=== PATIENT | male | born 1980 | race African-American/Black ===

== ENCOUNTER 2018-03-17 19:09 | Emergency (ER) | payer SELFPAY ==
--- NOTE | 2018-03-17 19:48 | ER ---
Nurse's Notes [facility] Name: Ward Matos Sr Age: 37 yrs Sex: Male : 1980 Arrival Date: 03/17/2018 Time: 19:11 Bed 16 Private MD: Diagnosis: Gout Presentation: 03/17 19:24 Presenting complaint: Patient states: right foot pain since last night - pt stated due ak1 to gout. Transition of care: patient was not received from another setting of care. Onset of symptoms was March 16, 2018. Risk Assessment: Do you want to hurt yourself or someone else? Patient reports no desire to harm self or others. Initial Sepsis Screen: Does the patient meet any 2 criteria? No. Patient's initial sepsis screen is negative. Does the patient have a suspected source of infection? No. Patient's initial sepsis screen is negative. Care prior to arrival: None. 19:24 Method Of Arrival: Ambulatory ak1 19:24 Acuity: KEVIN 4 ak1 Triage Assessment: 19:26 General: Appears in no apparent distress. Behavior is calm, cooperative. Pain: ak1 Complains of pain in right foot. EENT: No signs and/or symptoms were reported regarding the EENT system. Neuro: No deficits noted. Cardiovascular: No deficits noted. Respiratory: No deficits noted. GI: No signs and/or symptoms were reported involving the gastrointestinal system. : No signs and/or symptoms were reported regarding the genitourinary system. Derm: No signs and/or symptoms reported regarding the dermatologic system. Musculoskeletal: Reports pain in right foot since last night. pt ambulating with crutches. Historical: - Allergies: 19:26 PENICILLINS; ak1 19:26 Benadryl; ak1 - Home Meds: 19:26 valardin [Active]; HCTZ [Active]; ak1 - PMHx: 19:26 Hypertension; ak1 - PSHx: 19:26 right eye sx; ak1 - Immunization history:: Adult Immunizations unknown. - Social history:: Smoking status: Patient/guardian denies using tobacco. - Ebola Screening: : No symptoms or risks identified at this time. Screenin:09 Abuse screen: Denies threats or abuse. Denies injuries from another. Nutritional bs1 screening: No deficits noted. Tuberculosis screening: No symptoms or risk factors identified. Fall Risk None identified. Assessment: 19:30 Reassessment: See Triage notes. I agree with initial assessment. bs1 20:11 Reassessment: Patient appears in no apparent distress at this time. Patient and/or bs1 family updated on plan of care and expected duration. Pain level reassessed. Patient is alert, oriented x 3, equal unlabored respirations, skin warm/dry/pink. Patient states understanding of DC instructions. Vital Signs: 19:26 BP 129 / 107; Pulse 97; Resp 18; Temp 98.6; Pulse Ox 98% on R/A; Weight 145.15 kg (R); ak1 Height 6 ft. 0 in. (182.88 cm) (R); Pain 10/10; 20:08 BP 133 / 90; Pulse 79; Resp 18; Temp 98; Pulse Ox 99% on R/A; Pain 8/10; bs1 19:26 Body Mass Index 43.40 (145.15 kg, 182.88 cm) ak1 ED Course: 19:11 Patient arrived in ED. 19:25 Triage completed. ak1 19:26 Arm band placed on Patient placed in an exam room, on a stretcher, Patient notified of ak1 wait time. 19:28 Scott Corona MD is Attending Physician. 19:28 Patient has correct armband on for positive identification. Bed in low position. Call bs1 light in reach. Side rails up X 1. Pulse ox on. NIBP on. 19:32 Jailyn Ross, JENNIFER is Primary Nurse. bs1 20:09 No provider procedures requiring assistance completed. Patient did not have IV access bs1 during this emergency room visit. Administered Medications: No medications were administered Outcome: 19:48 Discharge ordered by . 20:10 Discharged to home ambulatory. bs1 20:10 Condition: stable 20:10 Discharge instructions given to patient, Instructed on discharge instructions, follow up and referral plans. medication usage, Demonstrated understanding of instructions, follow-up care, medications, Prescriptions given X 2. 20:11 Patient left the ED. bs1 Signatures: Estefanía Ramírez Amber RN RN ak Scott Corona MD MD Jailyn Ross, JENNIFER RN bs1
--- NOTE | 2018-03-17 19:48 | EDPHYS ---
Physician Documentation [facility] Name: Ward Matos Sr Age: 37 yrs Sex: Male : 1980 Arrival Date: 03/17/2018 Time: 19:11 Bed 16 Private MD: ED Physician Scott Corona HPI: 03/17 19:38 This 37 yrs old Black Male presents to ER via Ambulatory with complaints of Foot Pain. gs 19:38 The patient presents with pain. The complaints affect the right foot. Onset: The gs symptoms/episode began/occurred 1 week(s) ago. Modifying factors: the symptoms are aggravated by weight bearing, movement. Associated signs and symptoms: Pertinent negatives: fever. Severity of symptoms: At their worst the symptoms were moderate, in the emergency department the symptoms are unchanged. The patient has experienced similar episodes in the past, chronically. Historical: - Allergies: 19:26 PENICILLINS; ak1 19:26 Benadryl; ak1 - Home Meds: 19:26 valardin [Active]; HCTZ [Active]; ak1 - PMHx: 19:26 Hypertension; ak1 - PSHx: 19:26 right eye sx; ak1 - Immunization history:: Adult Immunizations unknown. - Social history:: Smoking status: Patient/guardian denies using tobacco. - Ebola Screening: : No symptoms or risks identified at this time. ROS: 19:38 All other systems are negative. gs Exam: 19:38 ENT: Nares patent. No nasal discharge, no septal abnormalities noted. Tympanic gs membranes are normal and external auditory canals are clear. Oropharynx with no redness, swelling, or masses, exudates, or evidence of obstruction, uvula midline. Mucous membranes moist. Cardiovascular: Regular rate and rhythm with a normal S1 and S2. No gallops, murmurs, or rubs. Normal PMI, no JVD. No pulse deficits. Respiratory: Lungs have equal breath sounds bilaterally, clear to auscultation and percussion. No rales, rhonchi or wheezes noted. No increased work of breathing, no retractions or nasal flaring. Skin: Warm, dry with normal turgor. Normal color with no rashes, no lesions, and no evidence of cellulitis. Neuro: Awake and alert, GCS 15, oriented to person, place, time, and situation. Cranial nerves II-XII grossly intact. Motor strength 5/5 in all extremities. Sensory grossly intact. Cerebellar exam normal. Normal gait. 19:38 Constitutional: The patient appears alert, awake. 19:38 Musculoskeletal/extremity: Extremities: noted in the dorsum of right foot: Pulses: are normal with no appreciated deficits. 19:38 Musculoskeletal/extremity: Extremities: tenderness. 19:38 Skin: Appearance: Temperature: warm. Vital Signs: 19:26 BP 129 / 107; Pulse 97; Resp 18; Temp 98.6; Pulse Ox 98% on R/A; Weight 145.15 kg (R); ak1 Height 6 ft. 0 in. (182.88 cm) (R); Pain 10/10; 20:08 BP 133 / 90; Pulse 79; Resp 18; Temp 98; Pulse Ox 99% on R/A; Pain 8/10; bs1 19:26 Body Mass Index 43.40 (145.15 kg, 182.88 cm) ak1 MDM: 19:32 Patient medically screened. 19:38 Differential diagnosis: fracture, arthritis, gout. Data reviewed: vital signs, nurses gs notes. Response to treatment: the patient's symptoms have mildly improved after treatment, and as a result, I will discharge patient. Administered Medications: No medications were administered Disposition: 03/17/18 19:48 Discharged to Home. Impression: Gout. - Condition is Stable. - Discharge Instructions: Gout, [id number]. - Prescriptions for Prednisone 20 mg Oral Tablet - take 1 tablet by ORAL route once daily for 5 days; 5 tablet. Tylenol- Codeine #4 300-60 mg Oral Tablet - take 1 tablet by ORAL route every 6 hours As needed; 10 tablet. - Medication Reconciliation Form, Thank You Letter, Antibiotic Education, Prescription Opioid Use, Work release form form. - Follow up: Private Physician; When: 1 - 2 days; Reason: Re-evaluation by your physician. Signatures: Rossi Mederos RN RN ak1 Scott Corona MD MD Jailyn Ross RN RN bs1 Corrections: (The following items were deleted from the chart) 20:11 19:48 03/17/2018 19:48 Discharged to Home. Impression: Gout. Condition is Stable. Forms bs1 are Medication Reconciliation Form, Thank You Letter, Antibiotic Education, Prescription Opioid Use. Follow up: Private Physician; When: 1 - 2 days; Reason: Re-evaluation by your physician. gs
== END 2018-03-17 20:11 | disposition home or self-care (01) ==
LOC: ER 19:09
DX: M10.9 Gout, unspecified (principal); Z88.6 Allergy status to analgesic agent; Z88.0 Allergy status to penicillin; I10 Essential (primary) hypertension
CPT/HCPCS: 99283

== ENCOUNTER 2019-11-12 | Emergency (ER) | payer OTHER, SELFPAY ==
--- NOTE | 2019-11-12 15:26 | EDPHYS ---
Physician Documentation [facility] Name: Ward Matos Sr Age: 39 yrs Sex: Male : 1980 Arrival Date: 11/12/2019 Time: 14:52 Bed 20 Private MD: ED Physician Jose Arevalo HPI: 11/11 15:21 This 39 yrs old Black Male presents to ER via Ambulatory with complaints of no jmm complaints. 15:21 This is a 39 year old male with a history of htn that presents to the ED with no jmm complaints. Patient states he cleared his throat at work and was advised to get checked for sen virus. Patient has not had any recent travel or exposure to a known infected person. . Historical: - Allergies: 15:02 Benadryl; ll1 15:02 PENICILLINS; ll1 15:02 valsartan; ll1 - PMHx: 15:02 Hypertension; ll1 - PSHx: 15:02 right eye sx; ll1 - Immunization history:: Flu vaccine is not up to date. - Social history:: Smoking status: Patient/guardian denies using. ROS: 15:21 Constitutional: Negative for fever, chills, and weight loss, ENT: Negative for injury, jmm pain, and discharge, Cardiovascular: Negative for chest pain, palpitations, and edema, Respiratory: Negative for shortness of breath, cough, wheezing, and pleuritic chest pain, Abdomen/GI: Negative for abdominal pain, nausea, vomiting, diarrhea, and constipation, Neuro: Negative for headache, weakness, numbness, tingling, and seizure. 15:21 All other systems are negative. Exam: 15:21 Constitutional: This is a well developed, well nourished patient who is awake, alert, jmm and in no acute distress. Head/Face: atraumatic. Eyes: EOMI, no conjunctival erythema appreciated ENT: Moist Mucus Membranes Neck: Trachea midline, Supple Chest/axilla: Normal chest wall appearance and motion. Cardiovascular: Regular rate and rhythm. No edema appreciated Respiratory: Normal respirations, no respiratory distress appreciated Abdomen/GI: Non distended, soft Back: Normal ROM 15:21 Skin: General appearance color normal MS/ Extremity: Moves all extremities, no obvious deformities appreciated, no edema noted to the lower extremities Neuro: Awake and alert, normal gait Psych: Behavior is normal, Mood is normal, Patient is cooperative and pleasant 15:21 ENT: Posterior pharynx: is normal. Vital Signs: 14:59 BP 160 / 109; Pulse 84; Resp 18; Temp 98.6; Pulse Ox 100% ; Pain 0/10; ll1 MDM: 15:17 Patient medically screened. [facility] 15:23 Data reviewed: vital signs, nurses notes. Counseling: I had a detailed discussion with hector the patient and/or guardian regarding: the historical points, exam findings, and any diagnostic results supporting the discharge/admit diagnosis, the need for outpatient follow up, to return to the emergency department if symptoms worsen or persist or if there are any questions or concerns that arise at home. ED course: Patient is asymptomatic and does not meet criteria for testing. . Administered Medications: No medications were administered Disposition: 18:31 Co-signature as Attending Physician, Jose Arevalo MD Signature for administrative ps1 purposes. Did not see or evaluate patient. . Disposition: 11/12/19 15:25 Discharged to Home. Impression: Person with feared health complaint in whom no diagnosis is made. - Condition is Stable. - Work release form, Medication Reconciliation Form, Thank You Letter, Antibiotic Education, Prescription Opioid Use form. - Follow up: Private Physician; When: 2 - 3 days; Reason: Recheck today's complaints, Continuance of care, Re-evaluation by your physician. Signatures: Aba Alcantar PA PA jmm Habalo, Winsy wh Singer, Phillip, MD MD ps1 Latasha Love RN RN ll1 Corrections: (The following items were deleted from the chart) 15:38 15:25 11/12/2019 15:25 Discharged to Home. Impression: Person with feared health wh complaint in whom no diagnosis is made. Condition is Stable. Forms are Medication Reconciliation Form, Thank You Letter, Antibiotic Education, Prescription Opioid Use. Follow up: Private Physician; When: 2 - 3 days; Reason: Recheck today's complaints, Continuance of care, Re-evaluation by your physician. hector
--- NOTE | 2019-11-12 15:26 | ER ---
Nurse's Notes [facility] Name: Ward Matos Sr Age: 39 yrs Sex: Male : 1980 Arrival Date: 11/12/2019 Time: 14:52 Bed 20 Private MD: Diagnosis: Person with feared health complaint in whom no diagnosis is made Presentation: 11/11 14:59 Chief complaint: Patient states: Sent home from work 2 days ago for clearing his ll1 throat. Needs work release. No fever or cough. + sinus congestion. Coronavirus screen: The patient has NOT traveled to a country currently being monitored by the [facility] within the last 14 days. Proceed with normal triage procedures. Ebola Screen: Patient denies travel to an Ebola-affected area in the 21 days before illness onset. Initial Sepsis Screen: Does the patient meet any 2 criteria? No. Patient's initial sepsis screen is negative. Risk Assessment: Do you want to hurt yourself or someone else? Patient reports no desire to harm self or others. 14:59 Method Of Arrival: Ambulatory ll1 15:02 Chief complaint: Patient states: Out of valsartan for 10 days. Needs refill. ll1 15:02 Acuity: KEVIN 4 ll1 15:10 Initial Sepsis Screen: Does the patient have a suspected source of infection? No. wh Patient's initial sepsis screen is negative. Onset of symptoms is unknown. Historical: - Allergies: 15:02 Benadryl; ll1 15:02 PENICILLINS; ll1 15:02 valsartan; ll1 - PMHx: 15:02 Hypertension; ll1 - PSHx: 15:02 right eye sx; ll1 - Immunization history:: Flu vaccine is not up to date. - Social history:: Smoking status: Patient/guardian denies using. Screenin:10 Abuse screen: Denies threats or abuse. Denies injuries from another. Nutritional wh screening: No deficits noted. Tuberculosis screening: No symptoms or risk factors identified. Fall Risk None identified. Assessment: 15:10 General: Appears in no apparent distress. Behavior is calm, cooperative, appropriate wh for age. Pain: Denies pain. Neuro: Level of Consciousness is awake, alert, obeys commands, Oriented to person, place, time, situation, Appropriate for age. Cardiovascular: Heart tones S1 S2. Respiratory: Reports cough that is non-productive, Airway is patent Respiratory effort is even, unlabored, Respiratory pattern is regular, symmetrical, Breath sounds are clear bilaterally. GI: Abdomen is flat, non-distended. : No signs and/or symptoms were reported regarding the genitourinary system. EENT: No signs and/or symptoms were reported regarding the EENT system. Derm: Skin is intact, is healthy with good turgor, Skin is pink, warm \T\ dry. normal. Musculoskeletal: Circulation, motion, and sensation intact. Vital Signs: 14:59 BP 160 / 109; Pulse 84; Resp 18; Temp 98.6; Pulse Ox 100% ; Pain 0/10; ll1 ED Course: 14:52 Patient arrived in ED. fj1 15:01 Triage completed. ll1 15:02 Arm band placed on. ll1 15:04 Aba Alcantar PA is PHCP. [facility] 15:04 Jose Arevalo MD is Attending Physician. [facility] 15:06 Gabo Barfield, RN is Primary Nurse. 15:10 Patient has correct armband on for positive identification. Bed in low position. Call light in reach. Side rails up X 1. Pulse ox on. NIBP on. 15:26 Radha Negron is Primary Nurse. 15:36 No provider procedures requiring assistance completed. Patient did not have IV access during this emergency room visit. Administered Medications: No medications were administered Outcome: 15:25 Discharge ordered by . [facility] 15:33 Discharged to home ambulatory. 15:33 Condition: stable 15:33 Discharge instructions given to patient, Instructed on discharge instructions, follow up and referral plans. POC Demonstrated understanding of instructions, follow-up care, POC 15:38 Patient left the ED. Signatures: Aba Alcantar PA PA jmm Munoz, Edgar, RN RN Radha Negron Pavan Solares 1 Latasha Love RN RN ll1 Corrections: (The following items were deleted from the chart) 15:02 14:59 Acuity: KEVIN 5 ll1 ll1
== END 2019-11-12 15:38 | disposition home or self-care (01) ==
CPT/HCPCS: 99283

== ENCOUNTER 2020-09-13 10:20 | Emergency (ER) | payer OTHER ==
[2020-09-13] MEDS ORDERED: IBUPROFEN 400 MG TAB ONE ×2 (12:18→12:20)
[2020-09-13 12:45] LABS: SARS-COV-2 RT PCR POSITIVE (NEGATIVE)
[2020-09-13 12:56] LABS: Urine Blood NEGATIVE (NEG); Urine Glucose NEGATIVE (NEG); Urine Protein 2+ (NEG); Urine Specific Gravity >1.030 (1.005-1.030); Urine pH 5.5 (5.0-7.0)
--- NOTE | 2020-09-13 13:16 | ER ---
Nurse's Notes [facility] Name: Ward Matos Age: 40 yrs Sex: Male : 1980 Arrival Date: 09/13/2020 Time: 10:24 Bed IW1 Private MD: Diagnosis: Coronavirus infection, unspecified Presentation: 09/13 10:38 Chief complaint: Patient states: fever, sneezing, chills, fatigue, cough x 4 days. R ca1 lower back pain x 3 days. Reports urinary urgency and frequency. Coronavirus screen: Client denies travel out of the [place] in the last 14 days. chills, congestion, cough unrelated to allergies, fatigue, fever, runny nose, Client presents with at least one sign or symptom that may indicate coronavirus-19. Standard/surgical mask placed on the client. Provider contacted for isolation considerations. Ebola Screen: Patient negative for fever greater than or equal to 101.5 degrees Fahrenheit, and additional compatible Ebola Virus Disease symptoms Patient denies exposure to infectious person. Patient denies travel to an Ebola-affected area in the 21 days before illness onset. No symptoms or risks identified at this time. Initial Sepsis Screen: Does the patient meet any 2 criteria? No. Patient's initial sepsis screen is negative. Does the patient have a suspected source of infection? No. Patient's initial sepsis screen is negative. Risk Assessment: Do you want to hurt yourself or someone else? Patient reports no desire to harm self or others. Onset of symptoms was September 10, 2020. 10:38 Method Of Arrival: Ambulatory ca1 10:38 Acuity: KEVIN 4 ca1 Historical: - Allergies: 10:42 Benadryl; ca1 10:42 PENICILLINS; ca1 10:42 valsartan; ca1 - PMHx: 10:42 Hypertension; ca1 - PSHx: 10:42 right eye sx; R arm surgery; ca1 - Immunization history:: Flu vaccine is not up to date. - Social history:: Smoking status: Patient reports the use of cigarette tobacco products, cigars. Screenin:12 Abuse screen: Denies threats or abuse. Denies injuries from another. Nutritional ca1 screening: No deficits noted. Tuberculosis screening: No symptoms or risk factors identified. Fall Risk None identified. Assessment: 11:12 General: Appears in no apparent distress. comfortable, Behavior is calm, cooperative, ca1 appropriate for age. General: Reports fever for > 3 days, feeling ill for > 3 days, fatigue for >3 days. Pain: Complains of pain in right low back Pain currently is 5 out of 10 on a pain scale. Pain began 2-3 days ago. Neuro: Level of Consciousness is awake, alert, obeys commands, Oriented to person, place, time, situation. Neuro: Reports headache. Cardiovascular: Heart tones S1 S2 present Capillary refill < 3 seconds Patient's skin is warm and dry. Respiratory: Reports cough that is Airway is patent Respiratory effort is even, unlabored, Respiratory pattern is regular, symmetrical, Breath sounds are clear bilaterally. GI: Abdomen is round non-distended, Bowel sounds present X 4 quads. Abd is soft and non tender X 4 quads. : Urine is clear, Reports urgency, since 3 days urinary frequency. EENT: Throat has enlarged tonsils bilaterally Reports nasal congestion nasal discharge. EENT: Throat is reddened. Derm: Skin is intact, is healthy with good turgor, Skin is pink, warm \T\ dry. Musculoskeletal: Circulation, motion, and sensation intact. Capillary refill < 3 seconds. 12:00 General: Appears in no apparent distress. comfortable, Behavior is calm, cooperative, zb appropriate for age, Reports fever for > 3 days, feeling ill for > 3 days, fatigue for >3 days. Pain: Complains of pain in right low back Pain currently is 5 out of 10 on a pain scale. Pain began 2-3 days ago. Neuro: Level of Consciousness is awake, alert, obeys commands, Oriented to person, place, time, situation. Cardiovascular: Heart tones S1 S2 present Capillary refill < 3 seconds in bilateral fingers Patient's skin is warm and dry. Respiratory: Reports shortness of breath cough that is Airway is patent Respiratory effort is even, unlabored, Respiratory pattern is regular, symmetrical, Breath sounds are clear bilaterally. GI: Abdomen is round non-distended, Bowel sounds present X 4 quads. Abd is soft and non tender. : Reports urgency, urinary frequency. EENT: Throat is reddened has enlarged tonsils bilaterally. Derm: Skin is intact, is healthy with good turgor, Skin is normal. Musculoskeletal: Circulation, motion, and sensation intact. Capillary refill Range of motion: intact in all extremities. 14:00 Neuro: Level of Consciousness is awake, alert, obeys commands, Oriented to person, aa5 place, time, situation. Respiratory: Airway is patent Respiratory effort is even, unlabored, Respiratory pattern is regular, symmetrical. Derm: Skin is dry, Skin is normal, Skin temperature is warm. Vital Signs: 10:38 BP 151 / 71; Pulse 69; Resp 16 S; Temp 97.5(TE); Pulse Ox 98% on R/A; Weight 149.69 kg ca1 (R); Height 6 ft. 0 in. (182.88 cm) (R); Pain 10/10; 10:38 Body Mass Index 44.76 (149.69 kg, 182.88 cm) ca1 ED Course: 10:24 Patient arrived in ED. as 10:41 Triage completed. ca1 10:42 Arm band placed on right wrist. ca1 11:03 Aba Alcantar PA is PHCP. hector 11:03 Jarek Wisdom MD is Attending Physician. [facility] 11:12 Patient has correct armband on for positive identification. Bed in low position. Call ca1 light in reach. Side rails up X 1. Pulse ox on. NIBP on. 12:00 Lidia Turner RN is Primary Nurse. zb 14:00 No provider procedures requiring assistance completed. Patient did not have IV access aa5 during this emergency room visit. Administered Medications: 12:02 Drug: Ibuprofen 800 mg Route: PO; zb Outcome: 13:15 Discharge ordered by . [facility] 14:00 Discharged to home ambulatory, with significant other, . aa5 14:00 Condition: stable 14:00 Discharge instructions given to patient, . Instructed on discharge instructions, follow up and referral plans. medication usage, Demonstrated understanding of instructions, follow-up care, medications, Prescriptions given X 3. 14:15 Patient left the ED. aa5 Signatures: Aba Alcantar PA PA jmm Martinez, Amelia as Calderon, Audri, RN RN aa5 Mitzi Van RN RN [facility] Lidia Turner RN RN zb Corrections: (The following items were deleted from the chart) 12:03 11:12 General: Reports feeling ill for > 3 days, fatigue for >3 days, [place] [id number]
--- NOTE | 2020-09-13 13:16 | EDPHYS ---
Physician Documentation [facility] Name: Ward Matos Age: 40 yrs Sex: Male : 1980 Arrival Date: 09/13/2020 Time: 10:24 Bed IW1 Private MD: URIEL Physician Jarek Wisdom HPI: 09/13 12:06 This 40 yrs old Black Male presents to ER via Ambulatory with complaints of Fever, jmm Congestion, Cough. 12:06 The patient or guardian reports cough. Onset: The symptoms/episode began/occurred jmm gradually, 3 day(s) ago. Modifying factors: The symptoms are alleviated by nothing. the symptoms are aggravated by nothing. Associated signs and symptoms: Pertinent positives: fever. Patient complains of right lower back pain, increased urination, daughter recently tested positive for covid. Historical: - Allergies: 10:42 Benadryl; ca1 10:42 PENICILLINS; ca1 10:42 valsartan; ca1 - PMHx: 10:42 Hypertension; ca1 - PSHx: 10:42 right eye sx; R arm surgery; ca1 - Immunization history:: Flu vaccine is not up to date. - Social history:: Smoking status: Patient reports the use of cigarette tobacco products, cigars. ROS: 12:06 Constitutional: Positive for body aches, fever. jmm 12:06 Respiratory: Positive for cough. 12:06 Back: Positive for pain with movement. 12:06 All other systems are negative. Exam: 12:06 Constitutional: This is a well developed, well nourished patient who is awake, alert, jmm and in no acute distress. Head/Face: atraumatic. Eyes: EOMI, no conjunctival erythema appreciated 12:06 Neck: Trachea midline, Supple Chest/axilla: Normal chest wall appearance and motion. Cardiovascular: Regular rate and rhythm. No edema appreciated Respiratory: Normal respirations, no respiratory distress appreciated Abdomen/GI: Non distended, soft 12:06 Skin: General appearance color normal MS/ Extremity: Moves all extremities, no obvious deformities appreciated, no edema noted to the lower extremities Neuro: Awake and alert, normal gait Psych: Behavior is normal, Mood is normal, Patient is cooperative and pleasant 12:06 ENT: Posterior pharynx: erythema, that is mild. 12:06 Back: pain, that is mild, of the right low back. Vital Signs: 10:38 BP 151 / 71; Pulse 69; Resp 16 S; Temp 97.5(TE); Pulse Ox 98% on R/A; Weight 149.69 kg ca1 (R); Height 6 ft. 0 in. (182.88 cm) (R); Pain 10/10; 10:38 Body Mass Index 44.76 (149.69 kg, 182.88 cm) ca1 MDM: 11:04 Patient medically screened. [facility] 13:13 Data reviewed: vital signs, nurses notes. Counseling: I had a detailed discussion with hector the patient and/or guardian regarding: the historical points, exam findings, and any diagnostic results supporting the discharge/admit diagnosis, lab results, the need for outpatient follow up, to return to the emergency department if symptoms worsen or persist or if there are any questions or concerns that arise at home. ED course: Patient is alert and non toxic in appearance in the ED. No signs of resp distress. patient given strict return precautions. Patient understood and agrees with the plan of care. . 09/13 10:51 Order name: Strep; Complete Time: 12:23 aa5 09/13 12:13 Order name: Throat Culture EDMA 09/13 12:36 Order name: Urine Dipstick--Ancillary (enter results); Complete Time: 13:25 bd 09/13 12:46 Order name: COVID-19/FLU A+B; Complete Time: 12:54 [facility] 09/13 11:38 Order name: Urine Dipstick-Ancillary (obtain specimen); Complete Time: 11:45 [facility] Administered Medications: 12:02 Drug: Ibuprofen 800 mg Route: PO; zb Disposition: 09/14 06:29 Co-signature as Attending Physician, Jarek Wisdom MD I agree with the assessment and [facility] plan of care. Disposition: 09/13/20 13:15 Discharged to Home. Impression: Coronavirus infection, unspecified. - Condition is Stable. - Discharge Instructions: COVID-19. - Prescriptions for ivermectin 3 mg Oral tablet - take 6 tablet by ORAL route as directed 1 dose now, next dose in 48 hrs; 12 tablet. Prednisone 20 mg Oral Tablet - take 3 tablet by ORAL route once daily for 5 days; 15 tablet. Albuterol Sulfate 90 mcg/actuation - inhale 1-2 puff by INHALATION route every 4-6 hours; 1 Inhaler. - Medication Reconciliation Form, Thank You Letter, Antibiotic Education, Prescription Opioid Use, Work release form form. - Follow up: Private Physician; When: 2 - 3 days; Reason: Recheck today's complaints, Continuance of care, Re-evaluation by your physician. Signatures: Dispatcher [employer] EDMA Jarek Wisdom MD MD cha Mickail, Joel, PA PA jmm Calderon, Audri, RN RN aa5 Mitzi Van RN Lidia Leal RN RN zb Corrections: (The following items were deleted from the chart) 09/13 11:44 10:51 CORONAVIRUS+MR.LAB.BRZ ordered. [facility] 11:45 10:51 Influenza Screen (A \T\ B)+BA.LAB.BRZ ordered. [facility] EDMA 14:15 13:15 09/13/2020 13:15 Discharged to Home. Impression: Coronavirus infection, aa5 unspecified. Condition is Stable. Forms are Medication Reconciliation Form, Thank You Letter, Antibiotic Education, Prescription Opioid Use. Follow up: Private Physician; When: 2 - 3 days; Reason: Recheck today's complaints, Continuance of care, Re-evaluation by your physician. hector
[2020-09-13 14:33] VITALS: BP 151/71; TEMP 97.5; O2SAT 98
== END 2020-09-13 14:15 | disposition home or self-care (01) ==
LOC: ER 10:20
DX: U07.1 COVID-19 (principal); I10 Essential (primary) hypertension; F17.290 Nicotine dependence, other tobacco product, uncomplicated; Z88.0 Allergy status to penicillin; Z88.8 Allergy status to other drugs, medicaments and biological substances
CPT/HCPCS: 87070; 87081; 81003; 0240U; 99283

== ENCOUNTER 2021-04-10 16:40 | Emergency (ER) | payer OTHER ==
[2021-04-10] MEDS ORDERED: BENZONATATE 100 MG CAP PO ONE (17:54)
--- NOTE | 2021-04-10 18:13 | RAD REPORT ---
EXAM DESCRIPTION: RAD - Chest Pa And Lat (2 Views) - 04/10/2021 5:54 pm CLINICAL HISTORY: COUGH Chest pain. COMPARISON: CHEST PA AND LAT 2 VIEW dated 04/17/2011; CHEST PA AND LAT 2 VIEW dated 12/29/2008 FINDINGS: The lungs are clear. The heart is normal in size. No displaced fractures. IMPRESSION: No acute or concerning finding suspected.
--- NOTE | 2021-04-10 19:17 | EDPHYS ---
Physician Documentation [facility] Name: Ward Matos Age: 40 yrs Sex: Male : 1980 Arrival Date: 04/10/2021 Time: 16:52 Bed Waiting Private MD: ED Physician Jason Torres HPI: 04/10 20:52 This 40 yrs old Black Male presents to ER via Ambulatory with complaints of Fever - kb Nausea, Back Pain. 20:52 The patient or guardian reports cough, that is intermittent, described as mild, with no kb sputum, flu symptoms, low-grade fever, myalgias. Onset: The symptoms/episode began/occurred 3 day(s) ago. Severity of symptoms: At their worst the symptoms were moderate, in the emergency department the symptoms are unchanged. Modifying factors: The symptoms are alleviated by nothing, the symptoms are aggravated by nothing. Associated signs and symptoms: Pertinent positives: fever, nausea, Pertinent negatives: chest pain, diarrhea, ear ache, rhinorrhea, sore throat, vomiting. The patient has not experienced similar symptoms in the past. The patient has not recently seen a physician. Historical: - Allergies: 17:22 Benadryl; hb 17:22 PENICILLINS; hb 17:22 valsartan; hb - Home Meds: 17:22 hctz [Active]; valardin [Active]; hb - PMHx: 17:22 Hypertension; hb - Immunization history:: Client reports having NOT received the Covid vaccine. - Social history:: Smoking status: Patient denies any tobacco usage or history of. ROS: 20:52 Neuro: Negative for headache, weakness, numbness, tingling, and seizure. kb 20:52 Constitutional: Positive for body aches, chills, fatigue, fever, malaise. 20:52 Cardiovascular: Positive for chest pain, with cough. 20:52 Respiratory: Positive for cough, Negative for dyspnea on exertion, hemoptysis, orthopnea, pleurisy, shortness of breath, sputum production, wheezing. 20:52 Abdomen/GI: Positive for nausea, Negative for abdominal pain, vomiting, diarrhea. 20:52 All other systems are negative. Exam: 20:52 Constitutional: This is a well developed, well nourished patient who is awake, alert, kb and in no acute distress. Head/Face: Normocephalic, atraumatic. ENT: Moist Mucous membranes Cardiovascular: Regular rate and rhythm with a normal S1 and S2. No gallops, murmurs, or rubs. No pulse deficits. Respiratory: Respirations even and unlabored. No increased work of breathing, no retractions or nasal flaring. Abdomen/GI: Soft, non-tender. No distention Skin: Warm, dry with normal turgor. Normal color. MS/ Extremity: Pulses equal, no cyanosis. Neurovascular intact. Full, normal range of motion. Neuro: Awake and alert, GCS 15, oriented to person, place, time, and situation. Moves all extremities. Normal gait. Psych: Awake, alert, with orientation to person, place and time. Behavior, mood, and affect are within normal limits. Vital Signs: 17:21 BP 173 / 101; Pulse 78; Resp 20; Temp 97.1; Pulse Ox 100% on R/A; Weight 151.05 kg; hb Height 6 ft. (182.88 cm); Pain 6/10; 17:21 Body Mass Index 45.16 (151.05 kg, 182.88 cm) hb MDM: 17:27 Patient medically screened. kb 20:50 Data reviewed: vital signs, nurses notes. Data interpreted: Pulse oximetry: on room air kb is 100 %. Interpretation: normal. Counseling: I had a detailed discussion with the patient and/or guardian regarding: the historical points, exam findings, and any diagnostic results supporting the discharge/admit diagnosis, lab results, radiology results, the need for outpatient follow up, a family practitioner, to return to the emergency department if symptoms worsen or persist or if there are any questions or concerns that arise at home. 04/10 17:27 Order name: Flu; Complete Time: 18:22 kb 04/10 17:27 Order name: Chest Pa And Lat (2 Views) XRAY; Complete Time: 18:18 kb 04/10 19:13 Order name: SARS-COV-2 RT PCR; Complete Time: 19:16 EDMS Administered Medications: No medications were administered Disposition: 04/11 18:52 Co-signature as Attending Physician, Jason Torres I agree with the assessment and plan sp3 of care. Disposition Summary: 04/10/21 19:17 Discharge Ordered Location: Home kb Condition: Stable kb Diagnosis - Coronavirus infection, unspecified kb Followup: kb - With: Emergency Department - When: As needed - Reason: Worsening of condition Followup: kb - With: Private Physician - When: 2 - 3 days - Reason: Recheck today's complaints, Continuance of care, Re-evaluation by your physician Discharge Instructions: - Discharge Summary Sheet kb - Viral Respiratory Infection, [id number] kb - COVID-19 kb Forms: - Medication Reconciliation Form kb - Thank You Letter kb - Antibiotic Education kb - Prescription Opioid Use kb Signatures: Dispatcher [employer] EDWA Florida Lee, PODIATRIC MEDICINE DOCTOR-C PODIATRIC MEDICINE DOCTOR-Ckb Elizabeth Villagomez, RN RN Jason Torres sp3 Corrections: (The following items were deleted from the chart) 04/10 18:00 17:28 CORONAVIRUS+.BRZ ordered. [facility]
--- NOTE | 2021-04-10 19:17 | ER ---
Nurse's Notes [facility] Name: Ward Matos Age: 40 yrs Sex: Male : 1980 Arrival Date: 04/10/2021 Time: 16:52 Bed Waiting Private MD: Diagnosis: Coronavirus infection, unspecified Presentation: 04/10 17:21 Chief complaint: Cough, fever, body aches, pain with cough, and nausea x 2 days. hb Coronavirus screen: Client presents with at least one sign or symptom that may indicate coronavirus-19. Standard/surgical mask placed on the client. Provider contacted for isolation considerations. Ebola Screen: No symptoms or risks identified at this time. Initial Sepsis Screen: Does the patient meet any 2 criteria? No. Patient's initial sepsis screen is negative. Does the patient have a suspected source of infection? No. Patient's initial sepsis screen is negative. Risk Assessment: Do you want to hurt yourself or someone else? Patient reports no desire to harm self or others. Onset of symptoms was April 08, 2021. 17:21 Method Of Arrival: Ambulatory hb 17:21 Acuity: KEVIN 4 hb Historical: - Allergies: 17:22 Benadryl; hb 17:22 PENICILLINS; hb 17:22 valsartan; hb - Home Meds: 17:22 hctz [Active]; valardin [Active]; hb - PMHx: 17:22 Hypertension; hb - Immunization history:: Client reports having NOT received the Covid vaccine. - Social history:: Smoking status: Patient denies any tobacco usage or history of. Vital Signs: 17:21 BP 173 / 101; Pulse 78; Resp 20; Temp 97.1; Pulse Ox 100% on R/A; Weight 151.05 kg; hb Height 6 ft. (182.88 cm); Pain 6/10; 17:21 Body Mass Index 45.16 (151.05 kg, 182.88 cm) hb ED Course: 16:52 Patient arrived in ED. ds1 17:22 Triage completed. hb 17:22 Arm band placed on. hb 17:27 Florida Lee FNP-C is PHCP. kb 17:27 Jason Torres is Attending Physician. kb 17:48 Chest Pa And Lat (2 Views) XRAY In Process Unspecified. EDMS Administered Medications: No medications were administered Outcome: 19:17 Discharge ordered by MD. tolliver 19:29 Patient left the ED. sharee Signatures: Dispatcher [employer] EDMS Florida Lee FNP-C FNP-Ckb Sanford, Demi ds1 Elizabeth Villagomez, RN RN hb Corrections: (The following items were deleted from the chart) 17:25 17:21 BP 173 / 101; Pulse 78bpm; Resp 20bpm; Pulse Ox 100% RA; 151.05 kg; Height 6 ft.; hb BMI: 45.1; Pain 6/10; hb
[2021-04-10 19:41] VITALS: BP 173/101; TEMP 97.1; O2SAT 100
== END 2021-04-10 19:29 | disposition home or self-care (01) ==
LOC: RAD 16:40 → ER 16:40
DX: U07.1 COVID-19 (principal); I10 Essential (primary) hypertension; Z88.0 Allergy status to penicillin; Z88.8 Allergy status to other drugs, medicaments and biological substances
CPT/HCPCS: 87804 ×2; 71046; U0003; 99282

== ENCOUNTER 2024-04-30 11:31 | Emergency (ER) | payer SELFPAY ==
--- OUTSIDE RECORDS SUMMARY | 2024-04-30 11:34 | XMS REPORT | Continuity of Care Document ---
Author Name Unknown Address [address] [place] [address] [facility] Address [address] [place] [address] Care Team Providers Care Other Spatial Scientist Name Role Phone Milady Vines Primary Care Physician Allergies, Adverse Reactions, Alerts Allergy Name Allergy Type Status Severity Reaction(s) Onset Date Inactive Date Treating Clinician Comments Source Benadryl Allergy - Oral Propensi ty to adverse reaction to drug Active 09-20 00:00: 00 Gibran Pickett Medications Ordered Medication Name Filled Medication Name Start Date Stop Date Current Medication? Ordering Clinician Indication Dosage Frequency Signature (SIG) Comments Components Source amlodipine 5 mg tablet - 00:00: 00 Yes 1mg Gibran Pickett valsartan 160 mg tablet 8-24 00:00: 00 Yes 1mg Gibran Pickett amlodipine 5 mg tablet 6-12 00:00: 00 Yes 1mg Gibran Pickett valsartan 160 mg tablet 6-12 00:00: 00 Yes 1mg Gibran Pickett TAKE 1 TABLET 3 TIMES DAILY. 2-20 00:00: 00 Yes 6 Gibran Pickett TAKE 1 TABLET DAILY. 2-20 00:00: 00 Yes 25 Gibran Pickett TAKE 1 TABLET DAILY. 2-20 00:00: 00 Yes 300 Gibran Pickett TAKE 1 TABLET 3 TIMES DAILY. 2-16 00:00: 00 Yes 100 Gibran Pickett TAKE 1 TABLET DAILY FOR BLOOD PRESSURE. 2022-08- 00:00: 00 Yes 160 Gibran Pickett TAKE 1 TABLET DAILY. 2022-08- 00:00: 00 10-16 00:00 :00 No 5 Gibransegun Pickett VALSARTN HCT 160-12.5 11-12 00:00: 00 Yes Gibran Pickett VALSARTN HCT 160-12.5 10-17 00:00: 00 Yes Gibran Pickett TAKE 1 CAPSULE 3 TIMES DAILY NEEDED. 09-24 00:00: 00 10-16 00:00 :00 No 50 Gibransegun Pickett TAKE 1 TABLET 3 TIMES DAILY. 09-20 00:00: 00 10-16 00:00 :00 No 100 Gibran Pickett TAKE 1 TABLET DAILY. 09-20 00:00: 00 10-16 00:00 :00 No [id number] Gibran Pickett TAKE 1 TABLET BY MOUTH EVERY DAY NEEDED 10-20 00:00: 00 Yes Gibran Pickett amoxicillin 500 mg tablet 02-14 00:00: 00 Yes 1mg Gibran Pickett Tessalon Perles 100 mg capsule 02-14 00:00: 00 Yes 1mg Gibran Pickett Vital Signs Vital Name Observation Time Observation Value Comments S ource Height Measured 2024-04-18 13:06:00 Gibran Pickett Body Temperature 2024-04-18 13:06:00 Gibran Pickett Heart Rate 2024-04-18 13:06:00 Hoa en Anastasiya Pickett Respiratory Rate 2024-04-18 13:06:00 Gibran Pickett BP Systolic 2024-04-18 13:06:00 Step hen Anastasiya Pickett BP Diastolic 2024-04-18 13:06:00 Lazaro phen F Piyush Weight Measured 2024-04-18 13:06:00 Gibran Pickett BP Systolic 2023-10-15 16:56:00 149 mm[Hg] Step hen F Piyush BP Diastolic 2023-10-15 16:56:00 86 mm[Hg] Lazaro phen F Piyush Weight Measured 2023-10-15 16:56:00 310.00 pounds Gibran Pickett Height Measured 2023-10-15 16:56:00 71.00 inches Gibran Pickett Body Temperature 2023-10-15 16:56:00 98.00 degrees Gibran F Piyush Heart Rate 2023-10-15 16:56:00 80.00 /min Hoa en F Piyush Respiratory Rate 2023-10-15 16:56:00 18.00 /min Gibran F Piyush BP Systolic 2023-07-01 11:58:00 156 mm[Hg] Step hen F Piyush BP Diastolic 2023-07-01 11:58:00 87 mm[Hg] Lazaro phen F Piyush Weight Measured 2023-07-01 11:58:00 310.00 pounds Gibran F Piyush Height Measured 2023-07-01 11:58:00 71.00 inches Gibran F Piyush Body Temperature 2023-07-01 11:58:00 98.20 degrees Gibran F Piyush Heart Rate 2023-07-01 11:58:00 81.00 /min Hoa en F Piyush Respiratory Rate 2023-07-01 11:58:00 18.00 /min Gibran F Piyush BP Systolic 2022-09-20 16:35:00 167 mm[Hg] Step hen F Piyush BP Diastolic 2022-09-20 16:35:00 103 mm[Hg] Lazaro phen F Piyush Weight Measured 2022-09-20 16:35:00 327.40 pounds Gibran F Piyush Height Measured 2022-09-20 16:35:00 71.00 inches Gibran F Piyush Body Temperature 2022-09-20 16:35:00 97.30 degrees Gibran F Piyush Heart Rate 2022-09-20 16:35:00 97.00 /min Hoa en F Piyush Respiratory Rate 2022-09-20 16:35:00 Gibran F Piyush BP Systolic 2016-02-15 13:53:00 141 mm[Hg] Step hen F Piyush BP Diastolic 2016-02-15 13:53:00 84 mm[Hg] Lazaro phen F Piyush Weight Measured 2016-02-15 13:53:00 321.60 pounds Gibran F Piyush Height Measured 2016-02-15 13:53:00 71.00 inches Gibran F Piyush Body Temperature 2016-02-15 13:53:00 97.80 degrees Gibran F Piyush Heart Rate 2016-02-15 13:53:00 91.00 /min Hoa en F Piyush Respiratory Rate 2016-02-15 13:53:00 16.00 /min Gibran F Piyush Encounters Start Date/Time End Date/Time Encounter Type Admission Type Attending [facility] Care Department Encounter ID Source 2024-04-18 13:05:50 2024-04-18 13:05:50 Outpatient SFA SFA [id number] Gibran Pickett 2024-04-18 00:00:00 2024-04-18 00:00:00 Outpatient Visit SFA [id number] Gibran Pickett 2023-10-15 14:45:02 2023-10-15 14:45:02 Outpatient SFA SFA [id number] Gibran Pickett 2023-07-01 11:54:36 2023-07-01 11:54:36 Outpatient SFA SFA [id number] Gibran Pickett Results Test Description Test Time Test Comments Results Result Co mments Source LIPID [id number] 04:40:52* Test Item Value Reference Range Interpretation Comme nts CHOLESTEROL (test code = 2210) 210 MG/DL <200 H TRIGLYCERIDES (test code = 2232) 223 MG/DL <150 H HDL CHOLESTEROL (test code = 2220) 45 MG/DL >39 CALC LDL CHOL (test code = 2237) 129 MG/DL <100 H NOTE: CALCULATED LDL IS BASED ON LYUDMILA-ROGERS METHOD WHICHINCLUDES ADJUSTABLE TRIGLYCERIDE:VLDL CHOLESTEROL RATIO.THIS FACTOR VARIES BY MEASURED TRIGLYCERIDE AND NON-HDLCHOLESTEROL CONCENTRATIONS WITH INCREASED CALCULATED LDL SEENIN HIGHER TRIGLYCERIDE OR LOWER NON-HDL SPECIMENS. FOR MOREINFORMATION, SEE CLIENT ANNOUNCEMENT AT [email or web address] /[email or web address] RISK RATIO LDL/HDL (test code = 2238) 2.87 RATIO <3.55 URIC [id number] 04:40:52* Test Item Value Reference Range Interpretation Comme nts URIC ACID (test code = 2233) 8.1 MG/DL 3.7-8.0 H UNLESS OTHERWISE INDICATED, ALL TESTING PERFORMED [facility] [address] [place] [id number] [employer]: ELIZA RAHMAN M.D. CLIA NUMBER [id number] [place]. [id number] COMPREHENSIVE METABOLIC [id number] 00:00:00* Test Item Value Reference Range Interpretation Comme nts GLUCOSE (test code = 2217) 91 MG/DL BUN (test code = 2208) 9 MG/DL CREATININE (test code = 2214) 1.08 MG/DL eGFR (2020 CKD-EPI) (test co de = 74554) 89 ML/MIN/1.73 CALC BUN/CREAT (test code = 2235) 8 RATIO SODIUM (test code = 2231) 142 MEQ/L POTASSIUM (test code = 2228) 4.1 MEQ/L CHLORIDE (test code = 2215) 101 MEQ/L CARBON DIOXIDE (test code = 2206) 29 MEQ/L CALCIUM (test code = 2209) 9.6 MG/DL PROTEIN, TOTAL (test code = 2229) 8.0 G/DL ALBUMIN (test code = 2201) 4.6 G/DL CALC GLOBULIN (test code = 2240) 3.4 G/DL CALC A/G RATIO (test code = 2234) 1.4 RATIO BILIRUBIN, TOTAL (test code = 2207) 0.3 MG/DL ALKALINE PHOSPHATASE (test code = 2204) 60 U/L AST (test code = 2218) 30 U/L ALT (test code = 2219) 27 U/L Gibran PickettLIPID [id number] 00:00:00* Test Item Value Reference Range Interpretation Comme nts CHOLESTEROL (test code = 2210) 210 MG/DL TRIGLYCERIDES (test code = 2232) 223 MG/DL HDL CHOLESTEROL (test code = 2220) 45 MG/DL CALC LDL CHOL (test code = 2237) 129 MG/DL RISK RATIO LDL/HDL (test cod e = 2238) 2.87 RATIO Gibran PickettURIC [id number] 00:00:00* Test Item Value Reference Range Interpretation Comme nts URIC ACID (test code = 2233) 8.1 MG/DL Gibran Pickett Notes Date/Time Note Provider Source Gibran Pickett [facility]
[2024-04-30] MEDS ORDERED: COLCHICINE 0.6 MG TAB ONE ×2 (12:24→14:31)
[2024-04-30] MEDS ORDERED: KETOROLAC 30 MG/ML INJ ONE (13:02)
--- NOTE | 2024-04-30 13:54 | RAD REPORT ---
EXAM DESCRIPTION: RAD - Hand Right 3 View - 04/30/2024 1:04 pm CLINICAL HISTORY: SWELLING COMPARISON: No comparisons TECHNIQUE: Right hand, 3 views. FINDINGS: No fracture is identified. There is no dislocation or periosteal reaction noted. Soft tissue swelling most notably along the the giovanni eminence and dorsum of the hand. No foreign body or other soft tissue abnormality. IMPRESSION: Soft tissue swelling as above. No acute osseous abnormality.
--- NOTE | 2024-04-30 14:16 | ER ---
Nurse's Notes [facility] Name: Ward Matos Age: 44 yrs Sex: Male : 1980 Arrival Date: 04/30/2024 Time: 11:31 Bed 5 Private MD: Diagnosis: Gout, unspecified Presentation: 04/30 11:57 Chief complaint: Patient states: Pt c/o pain and swelling to Rt hand beginning Saturday. dd2 Pt states Hx of Gout, on medication. Coronavirus screen: At this time, the client does not indicate any symptoms associated with coronavirus-19. Ebola Screen: No symptoms or risks identified at this time. Initial Sepsis Screen: Does the patient meet any 2 criteria? No. Patient's initial sepsis screen is negative. Does the patient have a suspected source of infection? No. Patient's initial sepsis screen is negative. Risk Assessment: Do you want to hurt yourself or someone else? Patient reports no desire to harm self or others. Onset of symptoms is unknown. 11:57 Method Of Arrival: Ambulatory dd2 11:57 Acuity: KEVIN 3 dd2 Triage Assessment: 11:58 General: Appears in no apparent distress. Behavior is calm, cooperative, appropriate dd2 for age. Pain: Complains of pain in right hand Pain currently is 10 out of 10 on a pain scale. Musculoskeletal: Swelling present in right hand. Injury Description: denies injury. Historical: - Allergies: 11:58 Benadryl; dd2 11:58 PENICILLINS; dd2 - PMHx: 11:58 Hypertension; Gout; dd2 - PSHx: 11:58 Rt arm; Rt eye; dd2 - Immunization history:: Adult Immunizations unknown. - Infectious Disease History:: Denies. - Social history:: Smoking status: Patient denies any tobacco usage or history of. Screenin:06 [facility] ED Fall Risk Assessment (Adult) History of falling in the last 3 months, rs5 including since admission No falls in past 3 months (0 pts) Confusion or Disorientation No (0 pts) Intoxicated or Sedated No (0 pts) Impaired Gait No (0 pts) Mobility Assist Device Used No (0 pt) Altered Elimination No (0 pt) Score/Fall Risk Level 0 - 2 = Low Risk Oriented to surroundings, Maintained a safe environment. Abuse screen: Denies threats or abuse. Nutritional screening: No deficits noted. Tuberculosis screening: No symptoms or risk factors identified. Assessment: 12:06 General: Appears in no apparent distress. uncomfortable, Behavior is calm, cooperative. rs5 Pain: Complains of pain in right hand Pain currently is 7 out of 10 on a pain scale. Quality of pain is described as aching, Is continuous. Neuro: Level of Consciousness is awake, alert, obeys commands, Oriented to person, place, time, situation. Cardiovascular: Patient's skin is warm and dry. Respiratory: Airway is patent Respiratory effort is even, unlabored, Respiratory pattern is regular, symmetrical. GI: Abdomen is round non-distended, Abd is soft and non tender X 4 quads. : No signs and/or symptoms were reported regarding the genitourinary system. EENT: No signs and/or symptoms were reported regarding the EENT system. Derm: Skin is intact, Skin is pink, warm \T\ dry. Musculoskeletal: Range of motion: limited in right hand Swelling present in right hand. 13:10 Reassessment: Patient and/or family updated on plan of care and expected duration. Pain rs5 level reassessed. Patient is alert, oriented x 3, equal unlabored respirations, skin warm/dry/pink. Patient states feeling better. Patient states symptoms have improved. 14:22 Reassessment: No changes from previously documented assessment. rs5 Vital Signs: 11:57 BP 159 / 92; Pulse 65; Resp 16; Temp 98.1(TE); Pulse Ox 98% ; Weight 138.35 kg; Height dd2 6 ft. 0 in. ; 14:45 BP 145 / 88; Pulse 67; Resp 17; Pulse Ox 99% on R/A; rs5 11:57 Body Mass Index 41.37 (138.35 kg, 182.88 cm) dd2 ED Course: 11:34 Patient arrived in ED. mg5 11:39 Aldo Martinez DO is Attending Physician. ms3 11:58 Triage completed. dd2 11:58 Arm band placed on left wrist. Patient placed in an exam room, on a stretcher, on pulse dd2 oximetry, Patient notified of wait time. 12:06 Patient has correct armband on for positive identification. Placed in gown. Bed in low rs5 position. Call light in reach. Side rails up X2. 12:06 No provider procedures requiring assistance completed. rs5 12:21 Eduardo Corado, RN is Primary Nurse. rs5 13:06 Hand Right 3 View XRAY In Process Unspecified. EDMS 14:15 Julio Cesar Torres DO is Referral Physician. ms3 14:46 Patient did not have IV access during this emergency room visit. rs5 Administered Medications: 12:25 Drug: Colchicine-Probenecid PO 2 tabs PO once Route: PO; rs5 13:10 Follow up: Response: No adverse reaction rs5 13:20 Drug: Ketorolac IM 15 mg IM once Route: IM; Site: left deltoid; rs5 13:40 Follow up: Response: No adverse reaction; Pain is decreased rs5 14:15 Drug: Colchicine-Probenecid PO 1 tabs PO once Route: PO; rs5 14:47 Follow up: Response: No adverse reaction rs5 Medication: 14:46 VIS not applicable for this client. rs5 Outcome: 14:15 Discharge ordered by MD. ms3 14:46 Discharged to home ambulatory, rs5 14:46 Condition: stable 14:46 Discharge instructions given to patient, family, Instructed on discharge instructions, follow up and referral plans. Demonstrated understanding of instructions, follow-up care, medications, Prescriptions given X 1, 14:47 Patient left the ED. rs5 Signatures: Dispatcher [employer] EDMS Aldo Martinez DO DO ms3 Eduardo Corado, RN RN rs5 Patricia Lechuga mg5 GRECIA ZULETA RN RN dd2
--- NOTE | 2024-04-30 14:16 | EDPHYS ---
Physician Documentation [facility] Name: Ward Matos Age: 44 yrs Sex: Male : 1980 Arrival Date: 04/30/2024 Time: 11:31 Bed 5 Private MD: ED Physician Aldo Martinez HPI: 04/30 12:26 This 44 yrs old Black Male presents to ER via Ambulatory with complaints of Hand Injury.ms3 12:26 44-year-old male with past medical history of hypertension, gout presents the emergency ms3 department for right hand swelling. Patient states he did cut his hand 2 weeks ago and then his hand began swelling on Saturday. Historical: - Allergies: 11:58 Benadryl; dd2 11:58 PENICILLINS; dd2 - PMHx: 11:58 Hypertension; Gout; dd2 - PSHx: 11:58 Rt arm; Rt eye; dd2 - Immunization history:: Adult Immunizations unknown. - Infectious Disease History:: Denies. - Social history:: Smoking status: Patient denies any tobacco usage or history of. ROS: 12:26 Cardiovascular: Negative for chest pain, and palpitations. Abdomen/GI: Negative for ms3 abdominal pain, nausea, vomiting, diarrhea, and constipation, MS/Extremity: Negative for injury and deformity, Skin: Negative for injury, rash, and discoloration, 12:26 Respiratory: Positive for cough, shortness of breath, 12:26 MS/extremity: Positive for swelling, Exam: 12:26 Constitutional: This is a well developed, well nourished patient who is awake, alert, ms3 and in no acute distress. Head/Face: Normocephalic, atraumatic. Neck: Trachea midline, no cervical lymphadenopathy. Supple, full range of motion without nuchal rigidity, or vertebral point tenderness. No Meningismus. Chest/axilla: Normal chest wall appearance and motion. Nontender with no deformity. Cardiovascular: Regular rate and rhythm with a normal S1 and S2. No gallops, murmurs, or rubs. Normal PMI, no JVD. No pulse deficits. Respiratory: Lungs have equal breath sounds bilaterally, clear to auscultation and percussion. No rales, rhonchi or wheezes noted. No increased work of breathing, no retractions or nasal flaring. Abdomen/GI: Soft, non-tender, with normal bowel sounds. No distension or tympany. No guarding or rebound. No evidence of tenderness throughout. Skin: Warm, dry with normal turgor. Normal color with no rashes, no lesions, and no evidence of cellulitis. 12:26 Musculoskeletal/extremity: Bilateral lower extremity edema 4+. Vital Signs: 11:57 BP 159 / 92; Pulse 65; Resp 16; Temp 98.1(TE); Pulse Ox 98% ; Weight 138.35 kg; Height dd2 6 ft. 0 in. ; 14:45 BP 145 / 88; Pulse 67; Resp 17; Pulse Ox 99% on R/A; rs5 11:57 Body Mass Index 41.37 (138.35 kg, 182.88 cm) dd2 MDM: 12:08 Patient medically screened. ms3 12:29 Differential diagnosis: Gout versus cellulitis versus fracture. ms3 14:42 Data reviewed: vital signs, nurses notes, radiologic studies, and as a result, I will ms3 discharge patient. I considered the following discharge prescriptions or medication management in the emergency department Medications were administered in the Emergency Department. See MAR. Independent interpretation of the following test(s) in the Emergency Department X-Ray: My interpretation is X-ray right hand reviewed by me reveals soft tissue swelling. Counseling: I had a detailed discussion with the patient and/or guardian regarding the historical points, exam findings, and any diagnostic results supporting the discharge/admit diagnosis, radiology results. 14:48 ED course: Discussed x-ray findings with patient. Patient to follow-up with Dr. Torres ms3 in 2 to 3 days. Patient understands and agrees with plan. All questions were answered. Return precautions discussed include worsening symptoms, or any other concerns. Patient given prescription for colchicine 0.6 mg p.o. daily and ibuprofen 600 mg.. 05 12:17 Order name: Hand Right 3 View XRAY; Complete Time: 14:13 ms3 Administered Medications: 12:25 Drug: Colchicine-Probenecid PO 2 tabs PO once Route: PO; rs5 13:10 Follow up: Response: No adverse reaction rs5 13:20 Drug: Ketorolac IM 15 mg IM once Route: IM; Site: left deltoid; rs5 13:40 Follow up: Response: No adverse reaction; Pain is decreased rs5 14:15 Drug: Colchicine-Probenecid PO 1 tabs PO once Route: PO; rs5 14:47 Follow up: Response: No adverse reaction rs5 Disposition Summary: 04/30/24 14:15 Discharge Ordered Notes: Location: Home ms3 Condition: Stable ms3 Diagnosis - Gout, unspecified ms3 Followup: ms3 - With: Julio Cesar Torres DO - When: 2 - 3 days - Reason: Recheck today's complaints Discharge Instructions: - Discharge Summary Sheet ms3 - Gout ms3 - Low-Purine Eating Plan ms3 Forms: - Medication Reconciliation Form ms3 - Antibiotic Education ms3 - Prescription Opioid Use ms3 - Patient Portal Instructions ms3 - Leadership Thank You Letter ms3 - Work release form rs5 Prescriptions: - colchicine 0.6 mg Oral tablet - take 1 tablet ORAL route daily; 20 tablet; Refills: 0, Product Selection ms3 Permitted - Ibuprofen 600 mg Oral Tablet - take 1 tablet ORAL route every 6 hours As needed take with food; 30 tablet; ms3 Refills: 0, Product Selection Permitted Signatures: Dispatcher [employer] Aldo Shrestha DO DO ms3 Eduardo Corado, RN RN rs5 GRECIA ZULETA RN RN dd2
[2024-04-30 15:25] VITALS: TEMP 98.1
[2024-04-30 15:27] VITALS: BP 145/88; O2SAT 99
== END 2024-04-30 14:47 | disposition home or self-care (01) ==
LOC: ER 11:31
DX: M10.9 Gout, unspecified (principal)
CPT/HCPCS: 96372; 99284